=== PATIENT | male | born 1955 | race Caucasian/White ===

== ENCOUNTER 2017-09-05 08:08 | Day surgery (SDC) | payer OTHER ==
[~2017-09-05] VITALS: Ht 185.4 cm; Wt 99.2 kg
[~2017-09-05 08:08] MED LIST: LOSARTAN-HCTZ1 EAC1
== END 2017-09-05 09:44 | disposition home or self-care (01) ==
LOC: ORSCSDS 08:08
PROVIDERS: Internal Medicine Gastroenterology
PROC: 0DJD8ZZ Inspection of Lower Intestinal Tract, Via Natural or Artificial Opening Endoscopic (ICD-10-PCS; principal; 2017-09-05 09:45)
DX: Z12.11 Encounter for screening for malignant neoplasm of colon (principal); K64.8 Other hemorrhoids; K57.30 Diverticulosis of large intestine without perforation or abscess without bleeding; Z86.010 Personal history of colon polyps; I10 Essential (primary) hypertension; B19.20 Unspecified viral hepatitis C without hepatic coma; Z79.899 Other long term (current) drug therapy
CPT/HCPCS: J7120

== ENCOUNTER 2018-07-09 18:16 | Emergency (ER) | payer OTHER ==
[~2018-07-09] VITALS: Ht 182.9 cm; Wt 102.1 kg
[2018-07-09 19:04] LABS: Source, Urine Clean Catch
[2018-07-09 19:11] LABS: Bilirubin, Urine Neg (Neg); Blood, Urine Neg (Neg); Glucose Qualitative, Urine Neg (Neg); Ketones, Urine Neg (Neg); Leukocyte Esterase, Urine Neg (Neg); Nitrite, Urine Neg (Neg); Protein, Urine Neg (Neg); Specific Gravity, Urine 1.015 (1.003-1.022); Urobilinogen, Urine NORM (Normal); pH, Urine 6.5 (5.0-8.0)
[2018-07-09 19:17] LABS: Appearance, Urine Clear (Clear); Color, Urine Yellow (P-Yellow)
== END 2018-07-09 20:50 | disposition home or self-care (01) ==
LOC: ER 18:16
PROVIDERS: Emergency Medicine
DX: T14.8XXA Other injury of unspecified body region, initial encounter (principal); M54.5 Low back pain; M54.2 Cervicalgia; I10 Essential (primary) hypertension; F17.200 Nicotine dependence, unspecified, uncomplicated; V53.5XXA Driver of pick-up truck or van injured in collision with car, pick-up truck or van in traffic accident, initial encounter
CPT/HCPCS: 72072; 72100; 72170; 81003; 99284-25

== ENCOUNTER → 2019-09-03 | Outpatient (CLI) | payer OTHER ==
[~2019-09-03] MED LIST changes: +NAPR220 PO
== END | disposition home or self-care (01) ==
LOC: LAB 19:15 → LAB SHORT 19:15
DX: R73.03 Prediabetes (principal); M10.9 Gout, unspecified
CPT/HCPCS: 83036; 84550

== ENCOUNTER → 2022-02-28 | Outpatient (CLI) | payer OTHER ==
[2022-03-01 09:33] LABS: U Amphetamine Screen DETECTED; U Barbituate Screen Not Detected; U Benzodiazapine Screen Not Detected; U Buprenorphine Screen Not Detected; U Cannabinoids Screen DETECTED; U Cocaine Screen Not Detected; U Methadone Screen Not Detected; U Methamphetamine Screen DETECTED; U Opiates Screen Not Detected; U Oxycodone Screen Not Detected; U Phencyclidine Screen Not Detected; U Propoxyphene Screen Not Detected
== END | disposition home or self-care (01) ==
LOC: LAB SHORT 11:15 → LAB 11:15
PROVIDERS: Physician Assistant
DX: F19.90 Other psychoactive substance use, unspecified, uncomplicated (principal)

== ENCOUNTER → 2023-01-16 | Outpatient (CLI) | payer OTHER | END | disposition home or self-care (01) | LOC: LAB 10:37 → LAB SHORT 10:37 | DX: N39.0 Urinary tract infection, site not specified (principal) | CPT/HCPCS: 87077; 87086; 87186 ==

== ENCOUNTER 2025-04-07 14:02 | Inpatient (IN) | payer OTHER ==
[~2025-04-07] VITALS: Ht 185.4 cm; Wt 99.8 kg
[2025-04-07 14:50] LABS: BASOPHILS ABSOLUTE AUTO 0.05 K/mm3 (0.00-0.23); BASOPHILS PERCENT AUTO 1 % (0-2); EOSINOPHILS ABSOLUTE AUTO 0.18 K/mm3 (0.00-0.68); EOSINOPHILS PERCENT AUTO 3 % (0-6); Hematocrit 44.3 % (37.0-53.0); Hemoglobin 14.2 g/dL (13.5-17.5); IMMATURE GRAN ABSOLUTE AUTO 0.01 K/mm3 (0.00-0.10); IMMATURE GRAN PERCENT AUTO 0 % (0-1); LYMPHOCYTES ABSOLUTE AUTO 1.05 K/mm3 (0.84-5.20); LYMPHOCYTES PERCENT AUTO 17 % (21-46); MONOCYTES ABSOLUTE AUTO 0.73 K/mm3 (0.16-1.47); MONOCYTES PERCENT AUTO 12 % (4-13); Mean Corpuscular HGB Conc 32.1 g/dL (31.5-36.5); Mean Corpuscular Volume 94 fL (80-100); NEUTROPHILS ABSOLUTE AUTO 4.22 K/mm3 (1.96-9.15); NEUTROPHILS PERCENT AUTO 68 % (41-73); NRBC ABSOLUTE 0.00 K/mm3 (0.00-0.02); NRBC Auto 0.0 /100 WBC (0.0-0.2); Platelet Count 188 K/mm3 (150-400); RDW Coefficient Variation 14.6 % (11.7-14.2); RDW Standard Deviation 49.7 fL (35.1-46.3)
[2025-04-07 15:13] LABS: Alanine Aminotransfer (ALT/SGP 39.0 U/L (12-78); Albumin, Blood 3.9 g/dL (3.4-5.0); Albumin/Globulin Ratio 1.1 (0.8-1.8); Anion Gap 11.0 mmol/L (3-11); Aspartate Aminotrans (AST/SGOT 30.0 U/L (12-37); Bilirubin, Total 1.0 mg/dL (0.1-1.0); Blood Urea Nitrogen 15.0 mg/dL (8-24); CO2, Blood 24.0 mmol/L (21-32); Calcium, Blood 9.3 mg/dL (8.5-10.1); Chloride, Blood 108.0 mmol/L (98-108); Creatinine, Blood 0.74 mg/dL (0.60-1.20); Globulin, Blood 3.5 g/dL (2.2-4.0); Glucose, Blood 177.0 mg/dL (70-99); Potassium, Blood 4.0 mmol/L (3.5-5.5); Sodium, Blood 139.0 mmol/L (136-145); Total Protein, Blood 7.4 g/dL (6.4-8.2)
[2025-04-07] MEDS ORDERED: Ondansetron HCl 2 MG / ML 2ML Vial IV PRN (17:10)
[2025-04-07] MEDS ORDERED: Labetalol HCL 5 MG/ML 4ML Injection (Single Dose) IV PRN (17:15)
[2025-04-07] MEDS ORDERED: FLU VACC TS2025(65UP)/MF59C/PF 45 MCG/0.5 ML SYRINGE IM SCH (17:30)
[2025-04-07 17:51] LABS: CHOL/HDL RATIO 3.0; Cholesterol 139 mg/dL (50-200); HDL Cholesterol 47 mg/dL (>39); LDL/HDL RATIO 1.5; Low Density Lipoprotein Chol 72 mg/dL (0-110); Triglycerides 101 mg/dL (30-160); Very Low Density Lipoprot Chol 20 mg/dL (6-32)
[2025-04-07] MEDS ORDERED: Triple Antibiotic Ointment Pack 0.9 GM TOP SCH (21:00)
[2025-04-07 21:28] VITALS: BP 166/109
[2025-04-07 22:41] VITALS: BP 168/103
[2025-04-07 23:49] VITALS: BP 137/92
[2025-04-08] MEDS ORDERED: HydrALAZINE HCl 20 MG / ML 1ML Vial IV PRN (00:15)
[2025-04-08 03:27] VITALS: BP 132/83
--- NOTE | 2025-04-08 04:08 | NUR ---
SHIFT SUMMARY 69 YR M ADMITTED ON 04/07/25. FULL CODE. PT IS ON TELE AND FREQUENTLY HIS HR DROPS TO 30'S AND HIGH 20'S. THE DROPS ARE VERY BRIEF AND HR RESUMES TO WNL (70'S-80'S). HOSPITALIST NOTIFIED AND CONFIRMED THIS WAS ALSO HAPPENING WHILE PT WAS IN ED. PT IS ASYMPTOMATIC AND HOSPITALIST STATED TO CONTINUE TO MONITOR. PT GIVEN LABETOLOL ONCE FOR HTN, THEN ORDER DC'D AND NEW ORDER FOR HYDRALIZINE WAS PUT IN. PT WAS GIVEN DIURETIC IN ED. PLAN IS FOR ECHO IN A.M. PT HAS MOSTLY SLEPT SINCE HIS ARRIVAL TO [facility] FLOOR. HE IS A&O X 4 AND INDEPENDANT TO BATHROOM ALTHOUGH HE IS MOSTLY USING A URINAL AT BEDSIDE. BED IS IN LOW POSITION WITH CALL LIGHT IN REACH.
--- NOTE | 2025-04-08 06:07 | NUR ---
PT HAD AN EKG DONE EARLIER IN THE SHIFT AND ONE DONE THIS A.M. STRIPS ARE IN PT CHART.
[2025-04-08 06:26] LABS: Anion Gap 8.0 mmol/L (3-11); Blood Urea Nitrogen 20.0 mg/dL (8-24); CO2, Blood 26.0 mmol/L (21-32); Calcium, Blood 9.3 mg/dL (8.5-10.1); Chloride, Blood 108.0 mmol/L (98-108); Creatinine, Blood 0.8 mg/dL (0.60-1.20); Glucose, Blood 127.0 mg/dL (70-99); Magnesium, Blood 2.2 mg/dL (1.6-2.4); Potassium, Blood 3.7 mmol/L (3.5-5.5); Sodium, Blood 138.0 mmol/L (136-145)
[2025-04-08 07:26] VITALS: BP 148/102
[2025-04-08] MEDS ORDERED: Enoxaparin 40 MG/0.4 ML SYR SC SCH (09:00)
[2025-04-08] MEDS ORDERED: PREDNISONE 10MG (09:47)
[2025-04-08 11:06] VITALS: BP 120/69
--- NOTE | 2025-04-08 11:30 | NUR ---
CALL FROM [employer] STATING PATIENT IS SINUS RHYTHM BETWEEN 60'S -70'S BUT OCCASIONALLY DROPPING INTO THE 30'S FOR 20-30 SEC. THIS RN CHECKED ON PATIENT AND PATIENT IS SLEEPING. DR. ROSAS CALLED AND MADE AWARE OF SITUATION. NO NEW VERBAL ORDERS AT THIS TIME.
[2025-04-08 16:21] VITALS: BP 152/112
--- NOTE | 2025-04-08 17:17 | NUR ---
PATIENT INDEPENDENT IN ROOM USING CANE. PATIENT USES CALL LIGHT NEEDED. WOUND CARE TO RIGHT FOOT DONE PER NURSING ORDERS. PATIENT TOLERATED WELL. NO PAIN MED REQUESTS DURING THIS SHIFT. CALL LIGHT WITHIN REACH.
[2025-04-08 19:30] VITALS: BP 151/94
[2025-04-09 00:34] VITALS: BP 158/108
--- NOTE | 2025-04-09 04:23 | NUR ---
SHIFT SUMMARY A&OX4. ABLE TO MAKE NEEDS KNOWN. DENIES CHEST PAIN/DISCOMFORT. CONTINUES TO HAVE SOB WITH EXERTION OR REPOSITIONING BUT RECOVERS QUICKLY WITH REST. HAS SOME DRY SKIN AND REDNESS ON ABD AND LEFT THIGH. LOTION GIVEN AND PT FELT THAT HELPED WITH ITCHING. WILL REPORT TO DAY SHIFT NURSE TO HAVE PROVIDER LOOK AT REDNESS/ITCHING. NO NEW CHANGES OVER NIGHT. PT CURRENTLY SLEEPING IN BED AT LOWEST POSITION WITH CALL LIGHT WITHIN REACH.
[2025-04-09 04:24] VITALS: BP 158/103
[2025-04-09 04:53] LABS: BASOPHILS ABSOLUTE AUTO 0.06 K/mm3 (0.00-0.23); BASOPHILS PERCENT AUTO 1 % (0-2); EOSINOPHILS ABSOLUTE AUTO 0.31 K/mm3 (0.00-0.68); EOSINOPHILS PERCENT AUTO 5 % (0-6); Hematocrit 46.1 % (37.0-53.0); Hemoglobin 15.1 g/dL (13.5-17.5); IMMATURE GRAN ABSOLUTE AUTO 0.01 K/mm3 (0.00-0.10); IMMATURE GRAN PERCENT AUTO 0 % (0-1); LYMPHOCYTES ABSOLUTE AUTO 1.51 K/mm3 (0.84-5.20); LYMPHOCYTES PERCENT AUTO 23 % (21-46); MONOCYTES ABSOLUTE AUTO 0.83 K/mm3 (0.16-1.47); MONOCYTES PERCENT AUTO 13 % (4-13); Mean Corpuscular HGB Conc 32.8 g/dL (31.5-36.5); Mean Corpuscular Volume 93 fL (80-100); NEUTROPHILS ABSOLUTE AUTO 3.77 K/mm3 (1.96-9.15); NEUTROPHILS PERCENT AUTO 58 % (41-73); NRBC ABSOLUTE 0.00 K/mm3 (0.00-0.02); NRBC Auto 0.0 /100 WBC (0.0-0.2); Platelet Count 193 K/mm3 (150-400); RDW Coefficient Variation 14.6 % (11.7-14.2); RDW Standard Deviation 49.8 fL (35.1-46.3)
[2025-04-09 05:33] LABS: Anion Gap 9.0 mmol/L (3-11); Blood Urea Nitrogen 20.0 mg/dL (8-24); CO2, Blood 26.0 mmol/L (21-32); Calcium, Blood 9.5 mg/dL (8.5-10.1); Chloride, Blood 106.0 mmol/L (98-108); Creatinine, Blood 0.86 mg/dL (0.60-1.20); Glucose, Blood 118.0 mg/dL (70-99); Magnesium, Blood 2.2 mg/dL (1.6-2.4); Potassium, Blood 3.9 mmol/L (3.5-5.5); Sodium, Blood 137.0 mmol/L (136-145)
--- NOTE | 2025-04-09 05:57 | NUR ---
RECEIVED A CALL FROM [employer] THAT PT PULSE WENT BRADYCARDIC TO 26 FOR 12 BEATS AND IS NOW BACK UP INTO THE 90'S. CHECKED IN ON PT AND PT IS SLEEPING IN BED COMFORTABLY. PROVIDER IS AWARE OF JERONIMO EPISODES AND WILL REPORT TO DAY SHIFT NURSE FOR FOLLOW UP WITH PROVIDER.
[2025-04-09 07:40] VITALS: BP 161/104
[2025-04-09] MEDS ORDERED: PRAMOXINE HCL/CALAMINE LOTION 177 ML BTL TOP PRN (11:10)
[2025-04-09 11:12] VITALS: BP 149/88
[2025-04-09 15:06] VITALS: BP 148/98
--- NOTE | 2025-04-09 18:43 | NUR ---
PATIENT INDEPENDENT IN ROOM, USES CALL LIGHT NEEDED.
[2025-04-09 19:46] VITALS: BP 137/95
[2025-04-10 00:32] VITALS: BP 144/107
[2025-04-10 02:57] VITALS: BP 148/97
--- NOTE | 2025-04-10 03:10 | NUR ---
CALL FROM [facility] STATING ST ELEVATION IN V LEAD AND MCL. PT ASYMPTOMATIC, VSS. [employer] OFFICER PROVIDER NOTIFIED, AND ALSO NOTIFIED OF SHORT EPISODES OF BRADYCARDIA 29-30'S. NO ORDERS RECEIVED.
[2025-04-10 04:05] VITALS: BP 147/97
[2025-04-10 05:23] LABS: BASOPHILS ABSOLUTE AUTO 0.05 K/mm3 (0.00-0.23); BASOPHILS PERCENT AUTO 1 % (0-2); EOSINOPHILS ABSOLUTE AUTO 0.36 K/mm3 (0.00-0.68); EOSINOPHILS PERCENT AUTO 5 % (0-6); Hematocrit 51.1 % (37.0-53.0); Hemoglobin 16.8 g/dL (13.5-17.5); IMMATURE GRAN ABSOLUTE AUTO 0.01 K/mm3 (0.00-0.10); IMMATURE GRAN PERCENT AUTO 0 % (0-1); LYMPHOCYTES ABSOLUTE AUTO 1.48 K/mm3 (0.84-5.20); LYMPHOCYTES PERCENT AUTO 21 % (21-46); MONOCYTES ABSOLUTE AUTO 0.90 K/mm3 (0.16-1.47); MONOCYTES PERCENT AUTO 13 % (4-13); Mean Corpuscular HGB Conc 32.9 g/dL (31.5-36.5); Mean Corpuscular Volume 91 fL (80-100); NEUTROPHILS ABSOLUTE AUTO 4.23 K/mm3 (1.96-9.15); NEUTROPHILS PERCENT AUTO 60 % (41-73); NRBC ABSOLUTE 0.00 K/mm3 (0.00-0.02); NRBC Auto 0.0 /100 WBC (0.0-0.2); Platelet Count 207 K/mm3 (150-400); RDW Coefficient Variation 14.2 % (11.7-14.2); RDW Standard Deviation 47.5 fL (35.1-46.3)
--- NOTE | 2025-04-10 05:25 | NUR ---
SHIFT SUMMARY PT UP INDEPENDENTLY WITH CANE IN ROOM, GAIT STEADY. VOIDING LARGE AMOUNTS PER URINAL. PT WITH MULTIPLE SHORT EPISODES OF SINUS JERONIMO PER ASSEMBLER TYPE BAR AND SEGMENT, ASYPTOMATIC. PT ALSO WITH SOME ST CHANGES NOTED, ASYMPTOMATIC. APPLICATION ARCHITECT PROVIDER NOTIFIED WITH NO NEW ORDERS. PT DENIES CHEST PAIN/ PRESSURE. PT SLEPT INTERMITTENTLY DURING THE NIGHT.
[2025-04-10 06:09] LABS: Anion Gap 12.0 mmol/L (3-11); Blood Urea Nitrogen 28.0 mg/dL (8-24); CO2, Blood 25.0 mmol/L (21-32); Calcium, Blood 9.8 mg/dL (8.5-10.1); Chloride, Blood 102.0 mmol/L (98-108); Creatinine, Blood 0.94 mg/dL (0.60-1.20); Glucose, Blood 121.0 mg/dL (70-99); Magnesium, Blood 2.3 mg/dL (1.6-2.4); Potassium, Blood 3.6 mmol/L (3.5-5.5); Sodium, Blood 135.0 mmol/L (136-145)
[2025-04-10 07:49] VITALS: BP 130/93
[2025-04-10] MEDS ORDERED: JARDIANCE25 MG PO (11:09)
[2025-04-10] MEDS ORDERED: FURO40 PO (11:09)
[2025-04-10] MEDS ORDERED: SPIR25 PO (11:10)
[2025-04-10] MEDS ORDERED: LOSA50 PO (11:10)
[2025-04-10] MEDS ORDERED: Triple Antibi28.4 G1 TP (11:11)
[2025-04-10] MEDS ORDERED: POTA10T PO (11:11)
== END 2025-04-10 13:52 | disposition home or self-care (01) | DRG 291 ==
LOC: ER 14:02 → MEDS 14:03
PROVIDERS: Nurse Practitioner Acute Care; Physician Assistant; ADMIT Internal Medicine
DX: I11.0 Hypertensive heart disease with heart failure (principal); I50.21 Acute systolic (congestive) heart failure; Z91.148 Patient's other noncompliance with medication regimen for other reason; F15.10 Other stimulant abuse, uncomplicated; E11.621 Type 2 diabetes mellitus with foot ulcer; L97.519 Non-pressure chronic ulcer of other part of right foot with unspecified severity; E11.65 Type 2 diabetes mellitus with hyperglycemia
CPT/HCPCS: 36415; 71046; 80048; 80053; 80061; 83036; 83735; 83880; 84443; 84484; 85025; 93005; 93010; 96374; 97116; 97162; 99285-25; A9270; C8929; G0378; J1650; J1938; Q9957